=== PATIENT | male | born 1990 | race Caucasian/White ===

== ENCOUNTER 2016-07-26 17:59 | Inpatient (IN) | payer BC, OTHER ==
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
[2016-07-26 18:40] LABS: CHLORIDE,CL 109 mmol/L (98-110); SODIUM,NA 144 mmol/L (136-146)
[2016-07-26] MEDS ORDERED: Iopamidol 755 MG/ML 500 ML Multipack Bottle IVPUSH STA (18:42)
[2016-07-26] MEDS ORDERED: fentaNYL 100 MCG/2 ML SDV IVPUSH PRN (18:50)
[2016-07-26] MEDS ORDERED: Lidocaine 1% 20 ML MDV ONE (18:59)
[2016-07-26] MEDS ORDERED: LORazepam 2 MG/ML MDV ONE ×2 (19:04→19:09)
[2016-07-26] MEDS ORDERED: LORazepam 2 MG/ML MDV IVPUSH ONE ×2 (19:06→19:37)
[2016-07-26] MEDS ORDERED: Lidocaine 1% 20 ML MDV INJECT ONE (19:32)
[2016-07-26] MEDS ORDERED: diphenhydrAMINE 25 MG Cap PO PRN (20:08)
[2016-07-26] MEDS ORDERED: Ondansetron 4 MG/2 ML SDV IVPUSH PRN (20:08)
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
[2016-07-26] MEDS ORDERED: Lactated Ringers 1,000 ML IV SCH (20:15)
[2016-07-26] MEDS ORDERED: HYDROmorphone/Normal Saline 6 MG/30 ML PCA Vial IV PRN (20:15)
[2016-07-26] MEDS ORDERED: HYDROmorphone 1 MG/ML Syringe IVPUSH ONE (20:57)
--- NOTE | 2016-07-26 22:04 | PCM.SN ---
- Free Text/Narrative Note: Called by Dr Sheriff who is requesting intubation for transfer. On arrival pt is disoriented, tachypneic and tachycardic. Flight team is at the bedside to assist with intubation. RSI was performed with the following: Propofol 200mg IVP Rocuronium 50mg IVP Succinylcholine 100mg IVP Fentanyl 50mcg IVP DL with rojas 3 yields grade II view with copious bloody secretions noted in the airway. After aggressive suctioning, 8.0 cuffed ETT was placed. +BBS, EtCO2. Tube secured 24 cm at the lips. CXR ordered and reviewed by Dr Sheriff and myself, satisfactory ETT placement, multiple Rt sided ribs fracture and Rt pulmonary contusions, and Rt sided chest tube are also noted.
[2016-07-26 23:33] VITALS: BP 133/92
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
== END 2016-07-26 22:00 | disposition critical access hospital (66) | DRG 88 ==
LOC: MW.ED 17:59 → MW.ICU 18:52
PROVIDERS: ADMIT Surgery; ATTEND Surgery
PROC: 0W9930Z Drainage of Right Pleural Cavity with Drainage Device, Percutaneous Approach (ICD-10-PCS; principal; 2016-07-26)
PROC: 0BH17EZ Insertion of Endotracheal Airway into Trachea, Via Natural or Artificial Opening (ICD-10-PCS; 2016-07-26)
PROC: 5A1935Z Respiratory Ventilation, Less than 24 Consecutive Hours (ICD-10-PCS; 2016-07-26)
DX: S06.0X1A Concussion with loss of consciousness of 30 minutes or less, initial encounter (principal); S27.339A Laceration of lung, unspecified, initial encounter; S22.5XXA Flail chest, initial encounter for closed fracture; S27.0XXA Traumatic pneumothorax, initial encounter; V29.9XXA Motorcycle rider (driver) (passenger) injured in unspecified traffic accident, initial encounter; F17.200 Nicotine dependence, unspecified, uncomplicated; M54.2 Cervicalgia
CPT/HCPCS: 31500; 36415; 70450; 70450-26; 71010; 71010-26; 71260; 71260-26; 72125; 72125-26; 74177; 74177-26; 80053; 85025; 85610; 86850; 86900; 86901; 93005; 96374; 96375; 99283; 99285-25; G0480; J2060; J3010; Q9967